=== PATIENT | female | born 1970 | race Two or more races ===

== ENCOUNTER 2022-07-08 17:10 | Emergency (ER) | payer BC ==
[~2022-07-08] VITALS: Ht 157.5 cm; Wt 64.4 kg
[2022-07-09] MEDS ORDERED: DUI500 PO (03:19)
[2022-07-09] MEDS ORDERED: BUTALBIT-ACETA1 EACH PO (03:19)
[2022-07-09] MEDS ORDERED: KETO10TA2 PO (03:19)
[2022-07-09] MEDS ORDERED: ONDANSETRON ODT8 MG PO (03:19)
== END 2022-07-09 03:29 | disposition home or self-care (01) ==
LOC: ER 17:10
DX: R51.9 Headache, unspecified (principal); R53.81 Other malaise